=== PATIENT | female | born 1990 | race American Indian/Alaskan Native ===

== ENCOUNTER 2019-09-08 12:45 | Emergency (ER) | payer SELFPAY ==
--- NOTE | 2019-09-08 13:00 | Event Note ---
ED Screening Note Date of service: 09/08/19 Time: 12:58 ED Screening Note: This is a 28 y.o. F. that presents to the ER with achy pain to left buttock for 2 days. Epson salt soaks with no improvement of symptoms. 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 This initial assessment/diagnostic orders/clinical plan/treatment(s) is/are subject to change based on patients health status, clinical progression and re- assessment by fellow clinical providers in the ED. Further treatment and workup at subsequent clinical providers discretion. Patient/guardian urged not to elope from the ED as their condition may be serious if not clinically assessed and managed. Initial orders include:
--- NOTE | 2019-09-08 14:13 | Emergency Department Report ---
ED Back Pain/Injury HPI - General Chief Complaint: Pain General Stated Complaint: LFT SIDE PAIN/EXTREME Time Seen by Provider: 09/08/19 12:58 Source: patient, family Mode of arrival: Ambulatory Limitations: No Limitations - History of Present Illness Initial Comments: 28-year-old female here for left flank pain after injuring himself at work a few days ago. She reports pain is radiating down her left leg. MD Complaint: back pain, back injury -: days(s) Similar Symptoms Previously: No Place: work Radiation: left leg Severity: moderate Severity scale (0 -10): 7 Quality: aching Consistency: constant Improves With: none Worsens With: movement, walking Context: while lifting Associated Symptoms: denies: confusion, weakness, chest pain, numbness, difficulty walking, cough, difficulty urinating, diaphoresis, incontinence, fe heber/chills, constipation, headaches, abdominal pain, loss of appetite, malaise, nausea/vomiting, rash, seizure, shortness of breath, syncope Treatments Prior to Arrival: other ([id number] pain medication) - Related Data Previous Rx's Medication Instructions Recorded Last Taken Type Acetaminophen/Codeine [Tylenol 1 tab PO Q6H PRN #14 tab 09/08/19 Unknown Rx /Codeine # 3 tab] Cyclobenzaprine [Flexeril] 10 mg PO TID PRN #12 tablet 09/08/19 Unknown Rx Ibuprofen [Motrin] 800 mg PO Q8HR PRN #12 tablet 09/08/19 Unknown Rx Allergies Allergy/AdvReac Type Severity Reaction Status Date / Time No Known Allergies Allergy Unverified 09/08/19 12:54 ED Review of Systems ROS: Stated complaint: LFT SIDE PAIN/EXTREME Other details as noted in HPI Constitutional: denies: chills, fever ENT: denies: throat pain Respiratory: denies: cough, shortness of breath, wheezing Cardiovascular: denies: chest pain, palpitations, dyspnea on exertion, edema, syncope Gastrointestinal: denies: abdominal pain, nausea, vomiting Genitourinary: denies: dysuria, frequency, hematuria, discharge, abnormal men ses, dyspareunia Musculoskeletal: back pain, arthralgia. denies: joint swelling, myalgia Skin: denies: rash Neurological: denies: headache, numbness, paresthesias, abnormal gait, other ED Past Medical Hx - Past Medical History Previous Medical History?: No - Surgical History Past Surgical History?: No - Family History Family history: no significant - Social History Smoking Status: Current Some Day Smoker Substance Use Type: Alcohol - Medications Home Medications: Home Medications Medication Instructions Recorded Confirmed Last Taken Type Acetaminophen/Codeine [Tylenol 1 tab PO Q6H PRN #14 tab 09/08/19 Unknown Rx /Codeine # 3 tab] Cyclobenzaprine [Flexeril] 10 mg PO TID PRN #12 tablet 09/08/19 Unknown Rx Ibuprofen [Motrin] 800 mg PO Q8HR PRN #12 tablet 09/08/19 Unknown Rx ED Physical Exam - General Limitations: No Limitations General appearance: alert, in no apparent distress - Head Head exam: Present: atraumatic, normocephalic, normal inspection - Eye Eye exam: Present: normal appearance, PERRL, EOMI Pupils: Present: normal accommodation - ENT ENT exam: Present: normal exam, normal orophraynx, mucous membranes moist, TM's normal bilaterally, normal external ear exam - Neck Neck exam: Present: normal inspection, full ROM. Absent: tenderness, lymphadenopathy - Respiratory Respiratory exam: Present: normal lung sounds bilaterally. Absent: respiratory distress, chest wall tenderness - Cardiovascular Cardiovascular Exam: Present: regular rate, normal rhythm, normal heart sounds - GI/Abdominal GI/Abdominal exam: Present: soft, normal bowel sounds. Absent: distended, tenderness - Extremities Exam Extremities exam: Present: normal inspection, full ROM, normal capillary refill, other (No cce. + 2 pulses in all extremities, no neurovascular compromise). Absent: tenderness, pedal edema, joint swelling, calf tenderness - Back Exam Back exam: Present: normal inspection, tenderness (left flank area), CVA tenderness (L), paraspinal tenderness (left), other (ambulates without any difficulties). Absent: full ROM, CVA tenderness (R), muscle spasm, vertebral tenderness, rash noted - Expanded Back Exam Expanded Back exam: Absent: saddle anesthesia Back exam: Negative Straight Leg Raising: Left, Right - Neurological Exam Neurological exam: Present: alert, oriented X3, normal gait, reflexes normal, other (no focal neurological deficits). Absent: motor sensory deficit - Psychiatric Psychiatric exam: Present: normal affect, normal mood - Skin Skin exam: Present: warm, dry, intact, normal color. Absent: rash ED Course Vital Signs 09/08/19 09/08/19 12:48 18:19 Temperature 98.5 F Pulse Rate 77 Respiratory 16 Rate Blood Pressure 145/109 140/84 [Right] O2 Sat by Pulse 100 Oximetry - Reevaluation(s) Reevaluation #1: 09/08/19 14:45 Urinalysis along with tests, X-ray of lumbar spine is negative. Pain medication and antinausea medication ordered and patient awaiting test result to have CT of the abdomen and pelvis without contrast. Reevaluation #2: 09/08/19 18:15 She is still with some pain although diminished with Toradol and [place] and she was given Flexeril. ED Medical Decision Making - Radiology Data Radiology results: report reviewed X-ray of lumbar spine and CT scan of the abdomen and pelvis dictated by radiologist and report reviewed by myself. Findings [facility] [address] [place] [address] Cat Scan Report Signed Patient: DAMRAIS MERRILL MR#: [id number] : 1990 Acct:[id number] Age/Sex: 28 / F ADM Date: 09/08/19 Loc: ED Attending Dr: Ordering Physician: OLIVER PANDEY Date of Service: 09/08/19 Procedure(s): CT abdomen pelvis wo con Accession Number(s): [id number] cc: OLIVER PANDEY CT ABDOMEN AND PELVIS WITHOUT CONTRAST INDICATION / CLINICAL INFORMATION: left flank pain. Injured back at work one week ago TECHNIQUE: Axial CT images were obtained through the abdomen and pelvis without IV contrast. All CT scans at this location are performed using CT dose reduction for ALARA by means of automated exposure control. COMPARISON: None available. FINDINGS: LOWER CHEST: No significant abnormality. LIVER: No significant abnormality. GALLBLADDER: No significant abnormality. BILE DUCTS: No significant abnormality. PANCREAS: No significant abnormality. SPLEEN: No significant abnormality. ADRENALS: No significant abnormality. RIGHT KIDNEY and URETER: No significant abnormality. LEFT KIDNEY and URETER: No significant abnormality. STOMACH and SMALL BOWEL: No significant abnormality. COLON: No significant abnormality. APPENDIX: No significant abnormality. PERITONEUM: No free fluid. No free air. No fluid collection. LYMPH NODES: No significant adenopathy. AORTA and ARTERIES: No significant abnormality. IVC and VEINS: No significant abnormality. URINARY BLADDER: No stones. No acute findings. REPRODUCTIVE ORGANS: No significant abnormality. ADDITIONAL FINDINGS: None. SKELETAL SYSTEM: No significant abnormality. IMPRESSION: 1. No significant abnormality. Signer Name: Lucas Samaniego MD Signed: 09/08/2019 5:20 PM Workstation Name: [id number] Transcribed By: BRONWYN Dictated By: Weston Samaniego MD Electronically Authenticated By: Weston Samaniego MD Signed Date/Time: 09/08/191719 DD/ 15 TD/TT: Findings [facility] [address] [place] [address] XRay Report Signed Patient: DAMARIS MERRILL MR#: [id number] : 1990 Acct:[id number] Age/Sex: 28 / F ADM Date: 09/08/19 Loc: ED Attending Dr: Ordering Physician: CHUCK BRIGHT Date of Service: 09/08/19 Procedure(s): XR spine lumbosacral 2-3V Accession Number(s): [id number] cc: CHUCK BRIGHT Fluoro Time In Minutes: LUMBAR SPINE 3 VIEWS INDICATION / CLINICAL INFORMATION: low back pain. COMPARISON: None available. FINDINGS: VERTEBRAE: No acute fracture. No significant malalignment. DISC SPACES / FACET JOINTS:No significant abnormality. PARASPINAL SOFT TISSUES:No significant abnormality. ADDITIONAL FINDINGS: None. Signer Name: Lucas Samaniego MD Signed: 09/08/2019 2:30 PM Workstation Name: [id number] Transcribed By: DT Dictated By: Weston Samaniego MD Electronically Authenticated By: Weston Samaniego MD Signed Date/Time: 09/08/19 143 DD/ 143 TD/TT: - Medical Decision Making This is a 28-year-old female who injured her back at work a few days ago and here with left lower back pain with radiation down to leg. Patient is neurologically intact and able to ambulate. X-ray of lumbar spine is stable at this was dictated by radiologist and report reviewed by myself. CT scan of the abdomen and pelvis shows no stone and was also stable. CT scan and x-ray reviewed by myself. Negative and urinalysis is contaminated without any infection. Patient pain is controlled at present. I discussed her CT scan, x-ray and lab results are and she voiced understanding I discussed case with Dr. Lexis Palafox and it was agreed that although patient has red blood cells and white blood cell and large amount of blood in her urine that she has contaminated urine. And her diagnosis of lumbar strain from injury at work. Patient has no urinary burning, frequency or urgency. Discharged home in stable condition with prescription for Flexeril, Motrin and Tylenol 3. - Differential Diagnosis pyelonephritis, kidney stones, lumbar spine pathology versus lumbar strain Critical care attestation.: If time is entered above; I have spent that time in minutes in the direct care of this critically ill patient, excluding procedure time. ED Disposition Clinical Impression: Lumbar strain Qualifiers: Encounter type: initial encounter Qualified Code(s): S39.012A - Strain of muscle, fascia and tendon of lower back, initial encounter Disposition: TO HOME OR SELFCARE Is pt being admited?: No Does the pt Need Aspirin: No Condition: Stable Instructions: Muscle Strain (ED), Back Pain (ED), RICE Therapy (ED) Additional Instructions: Please follow up with orthopedic doctor in 2-3 days and if you condition worsens return to the emergency room JC Take as prescribed but please do not take Tylenol [address] this medication causes drowsiness. Also please do not take Flexeril if you drive or operate heavy machinery as this medication causes drowsiness Rest for 3 days See discharge instruction in Rice protocol Prescriptions: Cyclobenzaprine [Flexeril] 10 mg PO TID PRN #12 tablet PRN Reason: Muscle Spasm Ibuprofen [Motrin] 800 mg PO Q8HR PRN #12 tablet PRN Reason: pain Acetaminophen/Codeine [Tylenol /Codeine # 3 tab] 1 tab PO Q6H PRN #14 tab PRN Reason: moderate to severe pain Referrals: PRIMARY CAREMD [Primary Care Provider] - 2-3 Days JESUS BAR MD [Staff Physician] - 2-3 Days Forms: Work/School Release Form(ED)
--- NOTE | 2019-09-08 14:35 | XRay Report ---
LUMBAR SPINE 3 VIEWS INDICATION / CLINICAL INFORMATION: low back pain. COMPARISON: None available. FINDINGS: VERTEBRAE: No acute fracture. No significant malalignment. DISC SPACES / FACET JOINTS:No significant abnormality. PARASPINAL SOFT TISSUES:No significant abnormality. ADDITIONAL FINDINGS: None. Signer Name: Lucas Samaniego MD Signed: 09/08/2019 2:30 PM Workstation Name: [id number]
[2019-09-08] MEDS ORDERED: TORADOL IM ONE (14:48)
[2019-09-08] MEDS ORDERED: ZOFRAN ODT PO ONE (14:48)
[2019-09-08] MEDS ORDERED: NORCO 5/325 PO ONE (14:48)
[2019-09-08 16:06] LABS: Bilirubin,Urine NEG (Negative); Blood,Urine LG (Negative); Color,Urine Yellow (Yellow); Mucus,Urine 1+ /HPF; Protein,Urine <15 mg/dL mg/dL (Negative); Urobilinogen,Urine < 2.0 mg/dL (<2.0)
[2019-09-08 16:14] LABS: HCG Qualitative,Urine Negative (Negative)
--- NOTE | 2019-09-08 17:24 | Cat Scan Report ---
CT ABDOMEN AND PELVIS WITHOUT CONTRAST INDICATION / CLINICAL INFORMATION: left flank pain. Injured back at work one week ago TECHNIQUE: Axial CT images were obtained through the abdomen and pelvis without IV contrast. All CT scans at [facility] location are performed using CT dose reduction for ALARA by means of automated exposure control. COMPARISON: None available. FINDINGS: LOWER CHEST: No significant abnormality. LIVER: No significant abnormality. GALLBLADDER: No significant abnormality. BILE DUCTS: No significant abnormality. PANCREAS: No significant abnormality. SPLEEN: No significant abnormality. ADRENALS: No significant abnormality. RIGHT KIDNEY and URETER: No significant abnormality. LEFT KIDNEY and URETER: No significant abnormality. STOMACH and SMALL BOWEL: No significant abnormality. COLON: No significant abnormality. APPENDIX: No significant abnormality. PERITONEUM: No free fluid. No free air. No fluid collection. LYMPH NODES: No significant adenopathy. AORTA and ARTERIES: No significant abnormality. IVC and VEINS: No significant abnormality. URINARY BLADDER: No stones. No acute findings. REPRODUCTIVE ORGANS: No significant abnormality. ADDITIONAL FINDINGS: None. SKELETAL SYSTEM: No significant abnormality. IMPRESSION: 1. No significant abnormality. Signer Name: Lucas Samaniego MD Signed: 09/08/2019 5:20 PM Workstation Name: [id number]
[2019-09-08] MEDS ORDERED: FLEXERIL PO ONE (17:45)
[2019-09-08 18:19] VITALS: BP 140/84
== END 2019-09-08 18:30 | disposition home or self-care (01) ==
LOC: ED 12:45
DX: S39.012A Strain of muscle, fascia and tendon of lower back, initial encounter (principal); F17.200 Nicotine dependence, unspecified, uncomplicated; Z79.1 Long term (current) use of non-steroidal anti-inflammatories (NSAID); Z79.899 Other long term (current) drug therapy; W22.8XXA Striking against or struck by other objects, initial encounter; Y93.89 Activity, other specified; Y92.69 Other specified industrial and construction area as the place of occurrence of the external cause; Y99.8 Other external cause status
CPT/HCPCS: 72100; 74176; 81001; 81025; 87086; 96372; 99284; J1885; Q0162

== ENCOUNTER 2021-03-18 15:47 | Emergency (ER) | payer OTHER ==
[2021-03-18 15:52] VITALS: BP 182/125
--- NOTE | 2021-03-18 16:46 | Emergency Department Report ---
ED ENT HPI - General Chief complaint: Earache Stated complaint: EARS CLOGGED UP Time Seen by Provider: 03/18/21 15:58 Source: patient Mode of arrival: Ambulatory Limitations: No Limitations - History of Present Illness Initial comments: This is a 30-year-old female brought by mother nontoxic, well nourished in appearance, no acute signs of distress presents to the ED with c/o of bilateral earache. Patient denies any ear drainage. Patient denies any trauma to the area. Patient denies any mastoid tenderness. Patient stated has some tragus tenderness bilaterally and sensation of ear fullness. Patient denies hearing decrease or hearing changes. Patient denies any fever, chills, nausea, vomiting, chest pain, short of breath, headache or stiff neck. Patient denies any drug allergies or significant past medical history. MD complaint: ear pain -: days(s) Location: R ear, L ear Severity: mild Severity scale (0 -10): 8 Quality: aching Consistency: constant Improves with: none Worsens with: none Associated Symptoms: denies: fever, cough, gum swelling, toothache, pain with swallowing, sore throat, tinnitus, hearing loss, discharge from ear, rhinorrhea - Related Data Previous Rx's Medication Instructions Recorded Last Taken Type Acetaminophen/Codeine [Tylenol 1 tab PO Q6H PRN #14 tab 09/08/19 Unknown Rx /Codeine # 3 tab] Cyclobenzaprine [Flexeril] 10 mg PO TID PRN #12 tablet 09/08/19 Unknown Rx Ibuprofen [Motrin] 800 mg PO Q8HR PRN #12 tablet 09/08/19 Unknown Rx Amoxicillin [Amoxicillin TAB] 875 mg PO BID #20 tablet 03/18/21 Unknown Rx Polymyxin B Sulf/Trimethoprim 2 drops OU TID 7 Days #1 drops 03/18/21 Unknown Rx [Polytrim Eye Drops] Allergies Allergy/AdvReac Type Severity Reaction Status Date / Time No Known Allergies Allergy Unverified 09/08/19 12:54 ED Dental HPI - General Chief complaint: Earache Stated complaint: EARS CLOGGED UP Time Seen by Provider: 03/18/21 15:58 Source: patient Mode of arrival: Ambulatory Limitations: No Limitations - Related Data Previous Rx's Medication Instructions Recorded Last Taken Type Acetaminophen/Codeine [Tylenol 1 tab PO Q6H PRN #14 tab 09/08/19 Unknown Rx /Codeine # 3 tab] Cyclobenzaprine [Flexeril] 10 mg PO TID PRN #12 tablet 09/08/19 Unknown Rx Ibuprofen [Motrin] 800 mg PO Q8HR PRN #12 tablet 09/08/19 Unknown Rx Amoxicillin [Amoxicillin TAB] 875 mg PO BID #20 tablet 03/18/21 Unknown Rx Polymyxin B Sulf/Trimethoprim 2 drops OU TID 7 Days #1 drops 03/18/21 Unknown Rx [Polytrim Eye Drops] Allergies Allergy/AdvReac Type Severity Reaction Status Date / Time No Known Allergies Allergy Unverified 09/08/19 12:54 ED Review of Systems ROS: Stated complaint: EARS CLOGGED UP Other details as noted in HPI Comment: All other systems reviewed and negative Constitutional: denies: chills, fever Eyes: denies: eye pain, eye discharge, vision change ENT: ear pain. denies: throat pain Respiratory: denies: cough, shortness of breath, wheezing Cardiovascular: denies: chest pain, palpitations Endocrine: no symptoms reported Gastrointestinal: denies: abdominal pain, nausea, diarrhea Genitourinary: denies: urgency, dysuria, discharge Musculoskeletal: denies: back pain, joint swelling, arthralgia Skin: denies: rash, lesions Neurological: denies: headache, weakness, paresthesias Psychiatric: denies: anxiety, depression Hematological/Lymphatic: denies: easy bleeding, easy bruising ED Past Medical Hx - Past Medical History Previous Medical History?: No - Surgical History Past Surgical History?: No - Social History Smoking Status: Current Some Day Smoker Substance Use Type: Alcohol - Medications Home Medications: Home Medications Medication Instructions Recorded Confirmed Last Taken Type Acetaminophen/Codeine [Tylenol 1 tab PO Q6H PRN #14 tab 09/08/19 Unknown Rx /Codeine # 3 tab] Cyclobenzaprine [Flexeril] 10 mg PO TID PRN #12 tablet 09/08/19 Unknown Rx Ibuprofen [Motrin] 800 mg PO Q8HR PRN #12 tablet 09/08/19 Unknown Rx Amoxicillin [Amoxicillin TAB] 875 mg PO BID #20 tablet 03/18/21 Unknown Rx Polymyxin B Sulf/Trimethoprim 2 drops OU TID 7 Days #1 drops 03/18/21 Unknown Rx [Polytrim Eye Drops] ED Physical Exam - General Limitations: No Limitations General appearance: alert, in no apparent distress - Head Head exam: Present: atraumatic, normocephalic - Eye Eye exam: Present: normal appearance - Expanded ENT Exam Expanded Ear exam: Present: normal external inspection TM/Canal exam: Erythema: Right TM, Left TM, Bulging: Left TM, Right TM Mouth exam: Present: normal external inspection, tongue normal. Absent: drooling, trismus, muffled voice Teeth exam: Present: normal inspection Throat exam: Positive: normal inspection, other (Uvula midline). Negative: tonsillar erythema, tonsillomegaly, tonsillar exudate, R peritonsillar mass, L peritonsillar mass - Neck Neck exam: Present: normal inspection, full ROM. Absent: tenderness, meningismus, lymphadenopathy - Respiratory Respiratory exam: Absent: respiratory distress - Cardiovascular Cardiovascular Exam: Present: regular rate - Extremities Exam Extremities exam: Present: full ROM - Back Exam Back exam: Present: full ROM - Neurological Exam Neurological exam: Present: alert, oriented X3, normal gait - Psychiatric Psychiatric exam: Present: normal affect, normal mood - Skin Skin exam: Present: warm, dry, intact, normal color. Absent: rash - Other Other exam information: Negative mastoid tenderness. Positive tragus tenderness to bilateral. ED Course Vital Signs 03/18/21 15:52 Temperature 98.1 F Pulse Rate 82 Respiratory 16 Rate Blood Pressure 182/125 [Right] O2 Sat by Pulse 98 Oximetry - Reevaluation(s) Reevaluation #1: 03/18/21 16:44 Patient is speaking in full sentences with no signs of distress noted. ED Medical Decision Making - Medical Decision Making Patient be treated with Polytrim and amoxicillin. Patient was instructed to follow-up with a primary care doctor in 3-5 days or if symptoms worsen and continue return to emergency room as soon as possible. At time of discharge, the patient does not seem toxic or ill in appearance. No acute signs of dis tress noted. Patient agrees to discharge treatment plan of care. No further questions noted by the patient. Critical care attestation.: If time is entered above; I have spent that time in minutes in the direct care of this critically ill patient, excluding procedure time. ED Disposition Clinical Impression: Otitis media Qualifiers: Otitis media type: unspecified Chronicity: acute Qualified Code(s): H66.90 - Otitis media, unspecified, unspecified ear Otitis externa Qualifiers: Otitis externa type: unspecified type Chronicity: acute Laterality: bilateral Qualified Code(s): H60.503 - Unspecified acute noninfective otitis externa, bilateral Disposition: TO HOME OR SELFCARE Is pt being admited?: No Does the pt Need Aspirin: No Condition: Stable Instructions: Otitis Externa, [id number], Otitis Media, Adult, [id number] Additional Instructions: Follow-up with a primary care doctor in 3-5 days or if symptoms worsen and continue return to emergency room as soon as possible. Prescriptions: Amoxicillin [Amoxicillin TAB] 875 mg PO BID #20 tablet Polymyxin B Sulf/Trimethoprim [Polytrim Eye Drops] 2 drops OU TID 7 Days #1 drops Referrals: PRIMARY CAREMD [Referring] - 3-5 Days NAGA CARY MD [Staff Physician] - 3-5 Days Forms: Work/School Release Form(ED) Time of Disposition: 16:46
== END 2021-03-18 17:54 | disposition home or self-care (01) ==
LOC: ED 15:47
DX: H60.503 Unspecified acute noninfective otitis externa, bilateral (principal); H60.93 Unspecified otitis externa, bilateral; F17.200 Nicotine dependence, unspecified, uncomplicated; Z79.899 Other long term (current) drug therapy
CPT/HCPCS: 99282

== ENCOUNTER 2021-06-05 13:28 | Emergency (ER) | payer MEDICARE, OTHER ==
[2021-06-05] MEDS ORDERED: TETANUS,DIPH,PERTUSS(ACELL) VACCINE 0.5 ML SYRINGE IM ONE (14:10)
[2021-06-05] MEDS ORDERED: IBUPROFEN 800 MG TAB PO STA (14:11)
[2021-06-05] MEDS ORDERED: ACETAMINOPHEN 500 MG TAB PO STA (14:11)
--- NOTE | 2021-06-05 14:14 | Emergency Department Report ---
ED General Adult HPI - General Chief complaint: Extremity Injury, Lower Stated complaint: LEFT KNEE PAIN Time Seen by Provider: 06/05/21 13:46 Source: patient Mode of arrival: Ambulatory Limitations: No Limitations - History of Present Illness Initial comments: 30-year-old -[place] female patient presents with complaints of left knee and lower leg pain after a fall injury at work yesterday. She rates her pain is 8/10 in severity and states it worsens with ambulation and bending. She admits to some swelling and bruising. Ibuprofen 600 mg helps a little with the pain per patient. No numbness/tingling or weakness in the leg per patient. -: Sudden - Related Data Previous Rx's Medication Instructions Recorded Last Taken Type Acetaminophen/Codeine [Tylenol 1 tab PO Q6H PRN #14 tab 09/08/19 Unknown Rx /Codeine # 3 tab] Cyclobenzaprine [Flexeril] 10 mg PO TID PRN #12 tablet 09/08/19 Unknown Rx Ibuprofen [Motrin] 800 mg PO Q8HR PRN #12 tablet 09/08/19 Unknown Rx Amoxicillin [Amoxicillin TAB] 875 mg PO BID #20 tablet 03/18/21 Unknown Rx Polymyxin B Sulf/Trimethoprim 2 drops OU TID 7 Days #1 drops 03/18/21 Unknown Rx [Polytrim Eye Drops] Naproxen 500 mg PO BID PRN #20 tablet 06/05/21 Unknown Rx Allergies Allergy/AdvReac Type Severity Reaction Status Date / Time No Known Allergies Allergy Verified 06/05/21 13:29 ED Review of Systems ROS: Stated complaint: LEFT KNEE PAIN Other details as noted in HPI Musculoskeletal: joint swelling, arthralgia Skin: denies: change in color Neurological: denies: numbness, paresthesias ED Past Medical Hx - Past Medical History Previous Medical History?: No - Surgical History Past Surgical History?: No - Social History Smoking Status: Never Smoker Substance Use Type: None - Medications Home Medications: Home Medications Medication Instructions Recorded Confirmed Last Taken Type Acetaminophen/Codeine [Tylenol 1 tab PO Q6H PRN #14 tab 09/08/19 Unknown Rx /Codeine # 3 tab] Cyclobenzaprine [Flexeril] 10 mg PO TID PRN #12 tablet 09/08/19 Unknown Rx Ibuprofen [Motrin] 800 mg PO Q8HR PRN #12 tablet 09/08/19 Unknown Rx Amoxicillin [Amoxicillin TAB] 875 mg PO BID #20 tablet 03/18/21 Unknown Rx Polymyxin B Sulf/Trimethoprim 2 drops OU TID 7 Days #1 drops 03/18/21 Unknown Rx [Polytrim Eye Drops] Naproxen 500 mg PO BID PRN #20 tablet 06/05/21 Unknown Rx ED Physical Exam - General Limitations: No Limitations General appearance: alert, in no apparent distress - Head Head exam: Present: atraumatic, normocephalic - Eye Eye exam: Present: normal appearance - Respiratory Respiratory exam: Absent: respiratory distress - Cardiovascular Cardiovascular Exam: Present: regular rate - Expanded Lower Extremity Exam Left Knee exam: Present: full ROM, tenderness, swelling (Mild medial), ecchymosis (S mall, medial patella). Absent: deformity Lower Leg exam: Present: full ROM, tenderness (Upper tibia), abrasion (Upper tibia). Absent: ecchymosis, deformity Neuro vascular tendon exam: Present: no vascular compromise - Neurological Exam Neurological exam: Present: alert, oriented X3 - Psychiatric Psychiatric exam: Present: normal affect, normal mood - Skin Skin exam: Present: warm, dry, intact, normal color. Absent: rash ED Course Vital Signs 06/05/21 06/05/21 06/05/21 13:33 14:15 14:41 Temperature 98.8 F Pulse Rate 78 Respiratory 20 16 Rate Blood Pressure 150/108 Blood Pressure 139/90 [Left] O2 Sat by Pulse 99 Oximetry ED Medical Decision Making - Radiology Data Radiology results: report reviewed XR tibia fibula 2V LT INDICATION / CLINICAL INFORMATION: L upper tibial pain after fall injury. COMPARISON: None available. FINDINGS: BONES/JOINT(S): No acute fracture or subluxation. No significant degenerative changes. SOFT TISSUES: No significant abnormality. ADDITIONAL FINDINGS: None. XR knee 4+V LT INDICATION / CLINICAL INFORMATION: L patella and medial pain after fall injury. COMPARISON: None available. FINDINGS: BONES/JOINT(S): No acute fracture or subluxation. No significant degenerative changes. SOFT TISSUES: No significant abnormality. ADDITIONAL FINDINGS: None. - Medical Decision Making 30-year-old -[place] female patient presents with complaints of left knee and lower leg pain after a fall injury at work yesterday. She rates her pain is 8/10 in severity and states it worsens with ambulation and bending. She admits to some swelling and bruising. Ibuprofen 600 mg helps a little with the pain per patient. No numbness/tingling or weakness in the leg per patient. X-rays negative for any acute bony abnormalities. Patient placed in Prem wrap and provided with crutches. Will treat for knee sprain with NSAIDs and icing. Tetanus vaccine updated. She is to follow-up with orthopedics as needed. Strict return precautions were discussed in detail patient who verbalized understanding. Critical care attestation.: If time is entered above; I have spent that time in minutes in the direct care of this critically ill patient, excluding procedure time. ED Disposition Clinical Impression: Left knee injury Disposition: TO HOME OR SELFCARE Is pt being admited?: No Condition: Stable Instructions: Knee Sprain, Adult Prescriptions: Naproxen 500 mg PO BID PRN #20 tablet PRN Reason: pain Referrals: JESUS BAR MD [Staff Physician] - as needed Forms: Work/School Release Form(ED)
[2021-06-05 14:42] VITALS: BP 139/90
--- NOTE | 2021-06-05 14:51 | XRay Report ---
XR knee 4+V LT INDICATION / CLINICAL INFORMATION: L patella and medial pain after fall injury. COMPARISON: None available. FINDINGS: BONES/JOINT(S): No acute fracture or subluxation. No significant degenerative changes. SOFT TISSUES: No significant abnormality. ADDITIONAL FINDINGS: None. Signer Name: Danny Loving MD Signed: 06/05/2021 2:46 PM Workstation Name: [email or web address]
--- NOTE | 2021-06-05 14:52 | XRay Report ---
XR tibia fibula 2V LT INDICATION / CLINICAL INFORMATION: L upper tibial pain after fall injury. COMPARISON: None available. FINDINGS: BONES/JOINT(S): No acute fracture or subluxation. No significant degenerative changes. SOFT TISSUES: No significant abnormality. ADDITIONAL FINDINGS: None. Signer Name: Danny Loving MD Signed: 06/05/2021 2:47 PM Workstation Name: [email or web address]
== END 2021-06-05 16:37 | disposition home or self-care (01) ==
LOC: ED 13:28
DX: S89.92XA Unspecified injury of left lower leg, initial encounter (principal); Z79.1 Long term (current) use of non-steroidal anti-inflammatories (NSAID); Z79.2 Long term (current) use of antibiotics; Z79.899 Other long term (current) drug therapy; W19.XXXA Unspecified fall, initial encounter; Y93.89 Activity, other specified; Y92.89 Other specified places as the place of occurrence of the external cause; Y99.0 Civilian activity done for income or pay
CPT/HCPCS: 90471; 90715